=== PATIENT | male | born 1985 | race Caucasian/White ===

== ENCOUNTER 2020-12-03 20:29 | Emergency (ER) | payer OTHER | END 2020-12-03 22:00 | disposition E | LOC: ER1 20:29 | DX: I46.9 Cardiac arrest, cause unspecified (principal); S09.90XA Unspecified injury of head, initial encounter; M79.602 Pain in left arm; V86.59XA Driver of other special all-terrain or other off-road motor vehicle injured in nontraffic accident, initial encounter | CPT/HCPCS: 92950; 99285; J7030 ==